=== PATIENT | male | born 1960 | race Caucasian/White ===

== ENCOUNTER 2021-05-03 10:59 | Observation (INO) | payer BC ==
[2021-05-03 12:17] LABS: BASO % 0.5 % (0-2.0); EOS % 0.6 % (0-4.5); HEMATOCRIT 49.5 % (35.4-49); HEMOGLOBIN 16.8 GM/dL (11.7-16.9); LYMPH % 14.9 % (8-40); MCH 29.8 pg (25.7-33.7); MEAN CELL VOLUME 87.7 fl (80-96); MEAN PLT VOLUME 8.9 fl (7.5-11.1); MONO % 5.9 % (3.8-10.2); NEUT % 78.1 % (42.8-82.8); PLATELET COUNT 188 10^3/uL (134-434); RBC 5.65 M/mm3 (4.00-5.60); RDW 13.8 % (11.9-15.9); WHITE BLOOD COUNT 6.7 K/mm3 (4.0-10.0)
[2021-05-03 12:39] LABS: BLOOD UREA NITROGEN 14.4 mg/dL (7-18); CALCIUM 9.6 mg/dL (8.5-10.1); MAGNESIUM 2.2 mg/dL (1.8-2.4)
[2021-05-03 12:43] LABS: CREATININE 0.8 mg/dL (0.55-1.3)
[2021-05-03 12:44] LABS: BILIRUBIN,TOTAL 0.7 mg/dL (0.2-1); PHOSPHOROUS 3.4 mg/dL (2.5-4.9); TOT PROT 7.1 g/dl (6.4-8.2)
[2021-05-03 15:46] LABS: EPI CELLS 2 /uL (0-25.1); HYALINE CASTS 2 /uL (0-3.1); URINE APPEARANCE CLEAR; URINE BACTERIA 7 /uL (0-1359); URINE BILIRUBIN 1+ (NEGATIVE); URINE COLOR DK YELLOW; URINE GLUCOSE (UA) NEGATIVE (NEGATIVE); URINE KETONE 2+ (NEGATIVE); URINE LEUK ESTERASE NEGATIVE (NEGATIVE); URINE NITRITE NEGATIVE (NEGATIVE); URINE PROTEIN TRACE (NEGATIVE); URINE WBC 6 /uL (0-25.8)
[2021-05-03 15:55] LABS: OPIATES, URI NEGATIVE (NEGATIVE); URINE BARBITURATES NEGATIVE (NEGATIVE)
[2021-05-03 15:56] LABS: COCAINE, UR NEGATIVE (NEGATIVE); METHADONE, UR NEGATIVE (NEGATIVE); PHENCYCLIDINE,URINE NEGATIVE (NEGATIVE); URINE AMPHETAMINES NEGATIVE (NEGATIVE); URINE BENZODIAZEPINES POSITIVE (NEGATIVE)
[2021-05-03 15:58] LABS: URINE RBC 81.9 /uL (0-23.9)
[2021-05-03] MEDS ORDERED: LORazepam 0.5 MG TABLET PO ONE (18:59)
[2021-05-03] MEDS ORDERED: LORazepam 0.5 MG TABLET ONE (19:20)
[2021-05-04] MEDS ORDERED: PARoxetine HCL 20 MG TABLET PO ONE (07:00)
[2021-05-04] MEDS ORDERED: PARoxetine HCL 10 MG TABLET ONE (07:53)
[2021-05-04 18:14] VITALS: BMI 23.9
[2021-05-04] MEDS: diazePAM 5 MG TABLET PO PRN (18:59)
[2021-05-04] MEDS: OLANZapine 2.5 MG TABLET PO SCH (21:05)
[2021-05-05] MEDS: diazePAM 5 MG TABLET PO PRN ×2 (06:33→13:25)
[2021-05-05 06:38] VITALS: TEMP 98.5
[2021-05-05] MEDS: OLANZapine 2.5 MG TABLET PO SCH (09:19)
[2021-05-05] MEDS ORDERED: ENOXAPARIN NA (PORCINE) 40 MG/0.4 ML DISP.SYRIN SQ SCH (10:00)
[2021-05-05 11:13] LABS: BASO % 0.7 % (0-2.0); EOS % 0.9 % (0-4.5); HEMATOCRIT 49.9 % (35.4-49); HEMOGLOBIN 16.9 GM/dL (11.7-16.9); LYMPH % 19.2 % (8-40); MCH 29.9 pg (25.7-33.7); MCHC 33.9 g/dl (32.0-35.9); MEAN CELL VOLUME 88.3 fl (80-96); MEAN PLT VOLUME 9.1 fl (7.5-11.1); MONO % 7.2 % (3.8-10.2); PLATELET COUNT 175 10^3/uL (134-434); RBC 5.65 M/mm3 (4.00-5.60); RDW 14.1 % (11.9-15.9); WHITE BLOOD COUNT 6.5 K/mm3 (4.0-10.0)
[2021-05-05 11:40] LABS: ALBUMIN 3.8 g/dl (3.4-5.0); BLOOD UREA NITROGEN 16.3 mg/dL (7-18); CALCIUM 9.7 mg/dL (8.5-10.1)
[2021-05-05 11:43] LABS: CREATININE 0.7 mg/dL (0.55-1.3)
[2021-05-05 11:45] LABS: BILIRUBIN,TOTAL 0.6 mg/dL (0.2-1); TOT PROT 6.8 g/dl (6.4-8.2)
[2021-05-05] MEDS ORDERED: PAROXETINE HCL PO SCH (12:15)
[2021-05-05 14:33] VITALS: BP 117/71; PULSE 71
[2021-05-05] MEDS ORDERED: LORazepam 0.5 MG TABLET PO SCH (22:00)
== END 2021-05-05 15:08 ==
LOC: SUPCPDRO 10:59 → JER 10:59 → JERBED 05-04 10:35 → J4S 05-04 17:30
PROVIDERS: ADMIT Family Medicine; ATTEND Family Medicine
PROC: 3E023GC Introduction of Other Therapeutic Substance into Muscle, Percutaneous Approach (ICD-10-PCS; principal; 2021-05-04)
DX: R45.851 Suicidal ideations (principal); F32.9 Major depressive disorder, single episode, unspecified; R45.84 Anhedonia; R00.0 Tachycardia, unspecified; R45.1 Restlessness and agitation; F17.210 Nicotine dependence, cigarettes, uncomplicated
CPT/HCPCS: 36415; 71045-TC-FY; 80053; 80307; 81003; 82550; 83735; 84100; 84439; 84443; 84484; 85025; 87086; 93005; 93010; 99285-25; C9803; G0378; U0003; U0005